=== PATIENT | female | born 1960 | race Two or more races ===

== ENCOUNTER 2017-09-05 14:57 | Outpatient (CLI) | payer OTHER | END 2017-09-05 15:10 | disposition home or self-care (01) | LOC: MAMO-SONO 14:57 | DX: Z12.31 Encounter for screening mammogram for malignant neoplasm of breast (principal); R92.0 Mammographic microcalcification found on diagnostic imaging of breast; N63.11 Unspecified lump in the right breast, upper outer quadrant ==

== ENCOUNTER 2018-07-09 11:05 | Outpatient (CLI) | payer OTHER | END 2018-07-09 11:11 | disposition home or self-care (01) | LOC: MAMO-SONO 11:05 | DX: N60.11 Diffuse cystic mastopathy of right breast (principal); N60.12 Diffuse cystic mastopathy of left breast ==

== ENCOUNTER 2025-02-22 09:56 | Outpatient (CLI) | payer OTHER | END 2025-02-22 09:59 | disposition home or self-care (01) | LOC: MAMO-SONO 09:56 | DX: N63.0 Unspecified lump in unspecified breast (principal); Z12.31 Encounter for screening mammogram for malignant neoplasm of breast ==